=== PATIENT | male | born 1985 | race Caucasian/White ===

== ENCOUNTER 2023-08-06 18:19 | Emergency (ER) | payer MEDICAID, OTHER ==
[~2023-08-06] VITALS: Ht 188 cm; Wt 80.7 kg
[2023-08-06 18:25] VITALS: BP 136/98; PULSE 75; RESP 18; O2SAT 99
[2023-08-07] MEDS ORDERED: DexAMETHasone SOD PHOS 10MG/1ML VIAL INJ IM ONE (02:00)
[2023-08-07] MEDS ORDERED: HYDROcodone-ACET 5/325MG TAB PO ONE (02:00)
[2023-08-07] MEDS ORDERED: METOCLOPRAMIDE HCL 10 MG TAB PO ONE (02:00)
[2023-08-07] MEDS ORDERED: KETOROLAC TROMETH 60MG/2ML VIAL IM ONE (02:00)
== END 2023-08-07 03:11 | disposition left against medical advice (07) ==
LOC: ER 18:19
DX: F07.81 Postconcussional syndrome (principal); G43.909 Migraine, unspecified, not intractable, without status migrainosus; F17.210 Nicotine dependence, cigarettes, uncomplicated
CPT/HCPCS: 70450; 72125; J1100; J1885